=== PATIENT | male | born 1940 | race Caucasian/White ===

== ENCOUNTER 2022-02-17 14:54 | Outpatient (CLI) | payer MEDICARE, SELFPAY ==
[2022-02-17 14:53] LABS: Chloride* 100 mmol/L (96-114); Sodium* 136 mmol/L (135-149)
[2022-02-17 14:56] LABS: Estimated Glomerular Filt Rate 75 ml/min
[2022-02-17 14:57] LABS: Blood Urea Nitrogen* 29 mg/dL (7-30); Calcium* 9.4 mg/dL (8.4-10.6); Carbon Dioxide* 21 mmol/L (20-32); Glucose* 152 mg/dL (60-115)
== END 2022-02-17 14:55 | disposition home or self-care (01) ==
PROVIDERS: PCP Family Medicine; Visit Provider Family Medicine
DX: E11.9 Type 2 diabetes mellitus without complications (principal)
CPT/HCPCS: 80048

== ENCOUNTER 2022-05-08 10:32 | Outpatient (CLI) | payer MEDICARE, SELFPAY ==
--- NOTE | 2022-05-08 10:45 | CRLHL7_ITS ---
For Patients: As a result of the Cures Act, medical imaging exams and procedure reports are released immediately into your electronic medical record. You may view this report before your referring provider. If you have questions, please contact your health care provider. DIGITAL DIAGNOSTIC BILATERAL MAMMOGRAM USING TOMOSYNTHESIS AND COMPUTER-AIDED DETECTION LEFT BREAST ULTRASOUND CLINICAL HISTORY: LEFT breast nipple pain. COMPARISON: None. TECHNIQUE: Digital BILATERAL mammogram in four projections. Tomosynthesis and CAD utilized. Real-time ultrasound imaging of LEFT breast with imaging documentation. BREAST COMPOSITION: There are areas of scattered fibroglandular density. FINDINGS: BILATERAL CC/MLO mammograms demonstrate minimal bilateral gynecomastia with benign calcifications on the LEFT. Some nipple artifact is present on the LEFT MLO image. No adenopathy. Targeted LEFT breast ultrasound performed adjacent to the LEFT nipple which demonstrates normal subcutaneous tissues without suspicious findings. IMPRESSION: Very minimal gynecomastia bilaterally. No suspicious masses. RECOMMENDATIONS: Clinical follow-up. Results and recommendations discussed with the patient. BI-RADS Category 2: Benign A lay language report of this examination will be provided to the patient. Dictated by Tulio Hernandez MD @ 05/08/2022 11:49:41 AM jj/Dictated by: Tulio Hernandez MD @ 05/08/2022 11:49:00 AM (Electronically Signed)
--- NOTE | 2022-05-08 11:15 | CRLHL7_ITS ---
For Patients: As a result of the Cures Act, medical imaging exams and procedure reports are released immediately into your electronic medical record. You may view this report before your referring provider. If you have questions, please contact your health care provider. PLEASE SEE DIGITAL DIAGNOSTIC BILATERAL MAMMOGRAM PERFORMED SAME DAY CRL:[email or web address] [email or web address]/Dictated by: Tulio Hernandez MD @ 05/08/2022 11:49:00 AM (Electronically Signed)
== END 2022-05-08 10:33 | disposition home or self-care (01) ==
LOC: MAMMO 10:33
PROVIDERS: PCP Family Medicine; Visit Provider Family Medicine
DX: N64.4 Mastodynia (principal); N62 Hypertrophy of breast
CPT/HCPCS: 76642; 77066; G0279

== ENCOUNTER 2022-05-19 15:54 | Outpatient (CLI) | payer MEDICARE, SELFPAY ==
[2022-05-19 13:49] LABS: Albumin* 4.6 g/dL (3.3-5.0); Chloride* 103 mmol/L (96-114)
[2022-05-19 13:50] LABS: Potassium* 4.7 mmol/L (3.6-5.1); Sodium* 138 mmol/L (135-149)
[2022-05-19 13:52] LABS: Aspartate Amino Transferase* 22 U/L (12-35); Bilirubin Total* 0.8 mg/dL (0.1-1.5); Blood Urea Nitrogen* 21 mg/dL (7-30); Carbon Dioxide* 26 mmol/L (20-32); Cholesterol* 95 mg/dL (90-199); Creatinine* 1.1 mg/dL (0.5-1.5); Estimated Glomerular Filt Rate 67 ml/min
[2022-05-19 13:53] LABS: Alanine Aminotransferase* 26 U/L (4-50); Alkaline Phosphatase* 53 U/L (40-150); Calcium* 9.1 mg/dL (8.4-10.6); Glucose* 132 mg/dL (60-115); HDL Cholesterol* 43 mg/dL (>=40); LDL Cholesterol Calculated 35 mg/dL (<100); Triglycerides* 86 mg/dL (40-149)
[2022-05-19 14:24] LABS: PSA Screen* < 0.06 ng/mL (0.10-4.00)
== END 2022-05-19 15:55 | disposition home or self-care (01) ==
PROVIDERS: PCP Family Medicine; Visit Provider Family Medicine
DX: Z00.00 Encounter for general adult medical examination without abnormal findings (principal); Z85.46 Personal history of malignant neoplasm of prostate; E11.9 Type 2 diabetes mellitus without complications
CPT/HCPCS: 80053; 80061; 84153

== ENCOUNTER 2022-12-01 08:30 | Outpatient (CLI) | payer MEDICARE, SELFPAY | END 2022-12-01 08:31 | disposition home or self-care (01) | LOC: NFLDREF 12-03 06:30 | PROVIDERS: PCP Family Medicine; Referring Provider Family Medicine; Visit Provider Family Medicine | DX: D64.9 Anemia, unspecified (principal); E11.9 Type 2 diabetes mellitus without complications | CPT/HCPCS: 82728; 83540 ==

== ENCOUNTER 2022-12-04 09:27 | Outpatient (CLI) | payer MEDICARE, SELFPAY | END 2022-12-04 09:28 | disposition home or self-care (01) | LOC: NFLDREF 12-05 05:22 | PROVIDERS: PCP Family Medicine; Referring Provider Family Medicine; Visit Provider Family Medicine | DX: E11.9 Type 2 diabetes mellitus without complications (principal); R55 Syncope and collapse; I49.9 Cardiac arrhythmia, unspecified; I10 Essential (primary) hypertension; I77.9 Disorder of arteries and arterioles, unspecified; E78.00 Pure hypercholesterolemia, unspecified; M54.50 Low back pain, unspecified; F41.9 Anxiety disorder, unspecified | CPT/HCPCS: 82043; 82570 ==

== ENCOUNTER 2022-12-11 10:42 | Outpatient (CLI) | payer MEDICARE, SELFPAY ==
--- NOTE | 2022-12-11 11:00 | CRLHL7_ITS ---
For Patients: As a result of the Cures Act, medical imaging exams and procedure reports are released immediately into your electronic medical record. You may view this report before your referring provider. If you have questions, please contact your health care provider. CLINICAL HISTORY: Carotid bruit, presyncope TECHNIQUE: The carotid circulations and the vertebral arteries in the neck were examined with self-scale ultrasound, color-flow and Doppler spectral analysis. Degrees of stenosis were determined using SRU 2002 Consensus Panel Criteria. FINDINGS: Sonographic images demonstrate bilateral atherosclerotic plaque formation without suspicious soft tissue mass. Antegrade flow within the vertebral arteries. Elevated velocity within the subclavian artery bilaterally with spectral broadening. The spectral Doppler tracings of the common carotid, internal and external carotid arteries demonstrate mild abnormal turbulence or spectral broadening within the left proximal and mid ICA. There was mild elevation of peak systolic blood flow which would indicate a hemodynamically-significant stenosis by SRU criteria within the proximal and mid left ICA. The ICA/CCA peak systolic velocity ratio measures 0.9 on the right and 0.7 on the left. 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 Less than 50 percent stenosis of the right ICA. Elevated velocities with spectral broadening in the subclavian arteries, right greater than left. Dictated by Tulio Hernandez MD @ 12/11/2022 12:23:53 PM (Electronically Signed)
== END 2022-12-11 10:43 | disposition home or self-care (01) ==
LOC: US 10:43
PROVIDERS: PCP Family Medicine; Visit Provider Family Medicine
DX: I77.9 Disorder of arteries and arterioles, unspecified (principal); I65.23 Occlusion and stenosis of bilateral carotid arteries
CPT/HCPCS: 93880

== ENCOUNTER 2022-12-29 13:46 | Outpatient (CLI) | payer MEDICARE, SELFPAY | END 2022-12-29 13:47 | disposition home or self-care (01) | LOC: RAD 13:47 | PROVIDERS: PCP Family Medicine; Visit Provider Family Medicine | DX: I49.9 Cardiac arrhythmia, unspecified (principal); I51.7 Cardiomegaly; I34.0 Nonrheumatic mitral (valve) insufficiency; I07.1 Rheumatic tricuspid insufficiency | CPT/HCPCS: 93306 ==